=== PATIENT | female | born 1950 ===

== ENCOUNTER 2017-07-09 04:36 | Emergency (ER) | payer SELFPAY ==
[2017-07-09 04:58] VITALS: RESP 18
--- NOTE | 2017-07-09 05:13 | C.PDOC ---
History Of Present Illness 66 year old female with a Hx of UTIs who presents to the ER with a complaint of suprapubic pain and dysuria for the past 4 days. Patient states she had been taking bactrim and pyridium for a prior UTI but stopped 4 days ago. Patient also desires evaluation of white residue on her tongue. Denies fever or vomiting. Time Seen by Provider: 07/09/17 04:56 Chief Complaint (Nursing): Female Genitourinary History Per: Patient History/Exam Limitations: no limitations Onset/Duration Of Symptoms: Days Current Symptoms Are (Timing): Still Present Quality Of Discomfort: Burning Associated Symptoms: Urinary Symptoms. denies: Fever, Vomiting Alleviating Factors: None Recent travel outside of the [place]: No Abnormal Vaginal Bleeding: No Past Medical History Reviewed: Historical Data, Nursing Documentation, Vital Signs Vital Signs: Last Vital Signs Temp 98.3 F 07/09/17 04:50 Pulse 76 07/09/17 04:50 Resp 18 07/09/17 04:50 BP 130/81 07/09/17 04:50 Pulse Ox 95 07/09/17 06:25 - Medical History PMH: HTN Surgical History: No Surg Hx Family History: States: Unknown Family Hx - Social History Hx Alcohol Use: No Hx Substance Use: No - Immunization History Hx Tetanus Toxoid Vaccination: No Hx Influenza Vaccination: No Hx Pneumococcal Vaccination: No Review Of Systems Except As Marked, All Systems Reviewed And Found Negative. Constitutional: Negative for: Fever Gastrointestinal: Positive for: Abdominal Pain. Negative for: Vomiting Genitourinary: Positive for: Dysuria Physical Exam - Physical Exam Additional Physical Exam Comments: Constitutional: No acute distress. Head: Normocephalic. Atraumatic. Eyes: PERRL. EOMI. ENT: White residue on lateral tongue bilaterally that easily scrapes off with tongue depressor. Neck: Supple. Cardiovascular: Regular rate. Radial pulses 2+ bilaterally. Chest: No tenderness. Respiratory: Clear to auscultation bilaterally. GI: Suprapubic tenderness. Back: No CVA tenderness. Musculoskeletal: No tenderness or swelling of extremities. Skin: No rash. Neurologic: Alert, no focal deficit. ED Course And Treatment O2 Sat by Pulse Oximetry: 95 Medical Decision Making Medical Decision Making: Plan: * Urine culture * Urinalysis Instructed to follow up with primary care. Instructed to return to the ED for any vomiting or fever or worsening pain. Disposition - Disposition Disposition: HOME/ ROUTINE Disposition Time: 06:24 Condition: GOOD Prescriptions: Phenazopyridine [Pyridium] 1 tab PO Q8 #6 tab Sulfamethoxazole/Trimethoprim [Bactrim DS 800 mg-160 mg] 1 tab PO BID #14 tab Instructions: Urinary Tract Infection in Women (ED) Forms: [employer] ([employer]) - Clinical Impression Clinical Impression: UTI (urinary tract infection) - Scribe Statement The provider has reviewed the documentation as recorded by the Scribe Yoni Norman All medical record entries made by the [place] were at my direction and personally dictated by me. I have reviewed the chart and agree that the record accurately reflects my personal performance of the history, physical exam, medical decision making, and the department course for this patient. I have also personally directed, reviewed, and agree with the discharge instructions and disposition.
[2017-07-09 05:26] LABS: RBC URINE 1 /hpf (0-3); URINE BILIRUBIN NEGATIVE (NEGATIVE); URINE BLOOD NEGATIVE (NEGATIVE); URINE COLOR Yellow (YELLOW); URINE GLUCOSE (UA) NORMAL (Normal); URINE KETONE NEGATIVE (NEGATIVE); URINE LEUKOCYTE ESTERASE 2+ Leu/uL (Negative); URINE PROTEIN NEGATIVE (NEGATIVE); URINE UROBILINOGEN NORMAL mg/dL (0.2-1.0); WBC URINE 5 /hpf (0-5)
[2017-07-09 06:40] VITALS: BP 120/70; PULSE 72; TEMP 98.1; O2SAT 95
== END 2017-07-09 06:40 | disposition home or self-care (01) ==
LOC: C.ER 04:36
DX: N39.0 Urinary tract infection, site not specified (principal)